=== PATIENT | female | born 1990 | race Caucasian/White ===

== ENCOUNTER 2019-07-11 10:47 | Outpatient (CLI) | payer BC, SELFPAY ==
[2019-07-11 12:36] LABS: TSH (W/Ref FT4) 2.66 uIU/mL (0.36-3.74)
== END 2019-07-11 11:07 ==
PROVIDERS: Visit Provider Nurse Practitioner Women's Health
DX: Z13.29 Encounter for screening for other suspected endocrine disorder (principal)
CPT/HCPCS: 36415; 84443

== ENCOUNTER 2019-07-11 11:46 | Outpatient (REF) | payer BC, SELFPAY ==
--- NOTE | 2019-07-11 10:35 | PAPFT_PTH ---
PATIENT: SRI CHU LOC: [facility] U#:[id number] AGE/SX: 28/F ROOM: RE07/11/[address]: Linda Barnes NP : 1990 BED: DIS: 07/11/2019 SPEC #: [id number] RECD: 07/11/19 12:56 STATUS: ROCHELLE REAbel #: [id number] VANNESSA: 07/11/19 10:[address]: Linda Barnes NP DEPT: [facility], [facility] Cytology RECD BY: Emily Mesa ENTERED: 07/11/19 12:56 SP TYPE: PAPFT TIARRA DR: None Tissues: 1 - CX/ENDOCX FOR PAP SMEARS Procedures: PAP THIN PREP/[facility] Screening Comments: [id number]
== END 2019-07-11 12:06 ==
LOC: LBN 11:46
PROVIDERS: Visit Provider Nurse Practitioner Women's Health
DX: Z12.4 Encounter for screening for malignant neoplasm of cervix (principal)
CPT/HCPCS: 88142

== ENCOUNTER 2025-07-24 08:29 | Outpatient (REF) | payer BC, SELFPAY ==
--- NOTE | 2025-07-24 08:10 | PAPFT_PTH ---
PATIENT: SRI CHU LOC: [facility] U#:[id number] AGE/SX: 34/F ROOM: RE07/24/[address]: Linda Barnes NP : 1990 BED: DIS: 07/24/2025 SPEC #: [id number] RECD: 07/24/25 12:56 STATUS: ROCHELLE DIAZ #: [id number] VANNESSA: 07/24/25 08:[address]: Linda Barnes NP DEPT: [facility] Cytology RECD BY: Emily Mesa ENTERED: 07/24/25 12:56 SP TYPE: PAPFT OT DR: Unknown,Unknown Tissues: 1 - CX/ENDOCX FOR PAP SMEARS Procedures: PAP THIN PREP/[facility] Screening HPV DNA PROBE Comments: [id number] (HPV 16 & 18/45)
== END 2025-07-24 08:30 | disposition home or self-care (01) ==
LOC: LBN 08:29
PROVIDERS: Visit Provider Nurse Practitioner Women's Health
DX: Z12.4 Encounter for screening for malignant neoplasm of cervix (principal)
CPT/HCPCS: 88142; 87624